=== PATIENT | male | born 1940 | race African-American/Black ===

== ENCOUNTER → 2018-06-11 | Outpatient (CLI) | payer OTHER ==
--- NOTE | 2018-06-11 17:36 | KCIC ---
3 view study of the right hand Clinical indications: Right hand pain and joint pain which is chronic. FINDINGS: No acute fracture or dislocation or osteolytic process is seen. There is a small marginal erosions of the proximal lateral second metacarpal bone and the medial distal trapezium bone and the lateral distal scaphoid bone and ulnar styloid process and medial aspect of the hamate bone and medial distal aspect triquetrum bone and proximal medial aspect of the third metacarpal bone and proximal lateral aspect of the fourth metacarpal bone. Findings are consistent with erosive arthropathy. There is mild degenerative osteoarthritis of the interphalangeal joints and the first carpal metacarpal joint and the first metacarpal phalangeal joint. No soft tissue calcification of the triangular fibrocartilage complex is seen. 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 Electronically signed by: Jose Chiang MD (06/11/2018 5:31 PM) [id number]
--- NOTE | 2018-06-11 17:38 | KCIC ---
LUMBAR SPINE MIN 4V History: Chronic low back pain, hurts to stand, pain in both sides of the back Comparison: None. Findings: 5 views of the lumbar spine are submitted. Lumbar vertebral body stature is maintained. AP alignment is within normal limits. There is mild spondylosis such as at L3-4. Intervertebral disc spaces are relatively preserved. There is facet degenerative change greater inferiorly of the lumbar spine. There is atherosclerotic calcification of the abdominal aorta. There are multiple clips in the pelvis. Impression: 1. There is mild spondylosis. Electronically signed by: Arjun Choi MD (06/11/2018 5:33 PM) [id number]
== END | disposition home or self-care (01) ==
LOC: KCIC 15:49
PROVIDERS: ATTEND Nurse Practitioner
DX: M19.041 Primary osteoarthritis, right hand (principal); M47.896 Other spondylosis, lumbar region; I70.0 Atherosclerosis of aorta; G89.29 Other chronic pain
CPT/HCPCS: 72110; 73130

== ENCOUNTER → 2018-09-14 | Outpatient (CLI) | payer OTHER ==
--- NOTE | 2018-09-14 17:19 | KCIC ---
Examination: 2 views of the chest HISTORY: History of annual screening for amiodarone therapy COMPARISON: None available FINDINGS: The cardiomediastinal silhouette grossly appears unremarkable. Left-sided cardiac pacer AICD is identified. Median sternotomy wires identified. Opacity projecting in the right hemithorax likely due to prior surgery. There is mild prominent bilateral interstitial lung markings. IMPRESSION: 1. Mild prominent interstitial lung markings probably chronic interstitial changes. 2. Opacity projecting in the right hemithorax probably due to prior surgery. Comparison with prior exam is recommended. Electronically signed by: Vasquez Laughlin MD (09/14/2018 4:48 PM) [id number]
== END | disposition home or self-care (01) ==
LOC: KCIC 14:43
PROVIDERS: ATTEND Internal Medicine Cardiovascular Disease
DX: Z13.9 Encounter for screening, unspecified (principal); Z95.810 Presence of automatic (implantable) cardiac defibrillator
CPT/HCPCS: 71046

== ENCOUNTER → 2019-02-22 | Outpatient (CLI) | payer OTHER ==
--- NOTE | 2019-02-22 16:27 | KCIC ---
Chest radiograph 02/22/2019 12:00 AM INDICATION: Amiodarone therapy COMPARISON: 09/14/2018 TECHNIQUE: Frontal and lateral views of the chest are provided. FINDINGS: The cardiomediastinal silhouette is within normal limits. Median sternotomy changes are present. Left chest wall cardiac device is in similar position. There is right apical pleural parenchymal scarring. Volume loss is noted in the right lung. Mild interstitial changes are noted at the lung bases, similar to the prior examination. Suspect pulmonary emphysema. No new airspace consolidation. No significant osseous abnormality is identified. IMPRESSION: Aeration of lungs appears similar to the prior examination from 09/14/2018. Mild interstitial changes are noted at the lung bases, likely chronic. Electronically signed by: Maricarmen León MD (02/22/2019 4:24 PM) [facility]
== END | disposition home or self-care (01) ==
LOC: KCIC 09:17
PROVIDERS: ATTEND Internal Medicine Cardiovascular Disease
DX: J98.4 Other disorders of lung (principal); Z79.899 Other long term (current) drug therapy
CPT/HCPCS: 71046

== ENCOUNTER → 2020-02-29 | Outpatient (CLI) | payer MEDICARE ==
--- NOTE | 2020-02-29 16:06 | KCIC ---
PA and lateral chest x-ray compared to similar exam dated February 22, 2019 for amiodarone therapy, right upper lobectomy. FINDINGS: There is partial involution of the right hemithorax consistent with distant surgery. Dual-lead AICD is present. Median sternal wires are seen. Heart size borderline enlarged but grossly unchanged. There are no significant osseous abnormalities. Area of pleural thickening in the right lower lung appears chronic. No definite pneumonic infiltrates are evident. IMPRESSION: 1. Stable chest x-ray with chronic changes as described. Electronically signed by: Junior Mendosa MD (02/29/2020 4:04 PM) [id number]
== END ==
LOC: KCIC 13:25
PROVIDERS: ATTEND Internal Medicine Cardiovascular Disease
DX: J92.9 Pleural plaque without asbestos (principal); I51.7 Cardiomegaly; Z79.899 Other long term (current) drug therapy
CPT/HCPCS: 71046